=== PATIENT | female | born 2000 | race Caucasian/White ===

== ENCOUNTER 2021-11-06 21:01 | Emergency (ER) | payer SELFPAY ==
[2021-11-06 21:37] LABS: BASOPHIL 0.4 % (0-2); EOSINOPHIL 1.1 % (0-5); HCT 42.1 % (37.0-47.0); HGB 14.5 g/dl (12.5-16.0); LYMPHOCYTE 19.4 % (15-48); MCHC 34.4 g/dL (32.0-36.0); MCV 87.2 fL (78.0-100.0); MONOCYTE 5.2 % (0-12); MPV 10.3 fL (6.0-9.5); NEUTROPHIL 73.3 % (41-80); NRBC 0; PLT 222 K/uL (150-400); RBC 4.83 M/uL (4.20-5.40); RDW 12.3 % (11.5-14.0); WBC 12.4 K/uL (4.0-10.5)
[2021-11-06 22:02] LABS: BILIRUBIN - TOTAL 0.5 mg/dL (0.2-1.0); BUN/CREAT RATIO (CALC) 12.9 RATIO; CREATININE 0.93 mg/dL (0.51-0.95); GLOBULIN (CALCULATION) 2.9 g/dL; POTASSIUM 3.1 mmol/L (3.5-5.1); TOTAL PROTEIN 6.9 g/dL (6.4-8.2)
[2021-11-06 22:22] LABS: ACETAMINOPHEN (TYLENOL) <2.0 ug/mL (10.0-30.0)
[2021-11-06 23:08] LABS: BILIRUBIN NEGATIVE (NEGATIVE); BLOOD NEGATIVE Ery/uL (NEGATIVE); CLARITY CLEAR (CLEAR); COLOR YELLOW (YELLOW); GLUCOSE (U) NORMAL (NORMAL); LEUKOCYTES NEGATIVE Leu/uL (NEGATIVE); NITRITE NEGATIVE (NEGATIVE); PROTEIN NEGATIVE (NEGATIVE); SPECIFIC GRAVITY >=1.030 (1.001-1.030); UROBILINOGEN 0.2 mg/dL (0.2-1.0)
[2021-11-06 23:13] LABS: AMPHETAMINES NEGATIVE (NEGATIVE); BARBITURATES NEGATIVE (NEGATIVE); ECSTASY (MDMA) NEGATIVE (NEGATIVE); MARIJUANA (THC) NEGATIVE (NEGATIVE); METHADONE NEGATIVE (NEGATIVE); OPIATES NEGATIVE (NEGATIVE); OXYCODONE NEGATIVE (NEGATIVE)
[2021-11-06 23:20] LABS: CORONAVIRUS 2019 SARS-COV-2 NEGATIVE (NEGATIVE); INFLUENZA A NAA NEGATIVE (NEGATIVE)
== END 2021-11-07 23:07 | disposition home or self-care (01) ==
LOC: FER 21:01
PROVIDERS: Emergency Medicine
DX: G40.409 Other generalized epilepsy and epileptic syndromes, not intractable, without status epilepticus (principal); T65.91XA Toxic effect of unspecified substance, accidental (unintentional), initial encounter; Z20.822 Contact with and (suspected) exposure to COVID-19
CPT/HCPCS: 36415; 70450; 71045; 80053; 80305; 81003; 84484; 85025; 93005; G0480; J1953; J2060; J2250; J2405; J2550; J3480; J7030; U0002